=== PATIENT | male | born 1945 | race Caucasian/White ===

== ENCOUNTER 2017-11-07 13:36 | Outpatient (CLI) | payer MEDICARE, OTHER ==
[~2017-11-07] VITALS: Ht 167.6 cm; Wt 51.3 kg
[~2017-11-07 13:36] MED LIST: ALBU18HF2 INH; ALOE VERA JUICE PO; ATR0.5NEB NEB; FERROFOOD; FLAX100031 PO; FLO44IN INH; FLORA SINUS; GASTREX; JOINT ADVANTAGE GOLD PO; LACT30003 PO; METHYL FOLATE; MONT10TA24 PO; NAC; OKRA PEPSIN; PROBIOTIC ADVANTAGE PO; PROSTATE SUPPORT PO; VISION ADVANTAGE PO; VITAMIN B-12 SL; VITAMIN D-3; VITAMIN K2; [UNRECOGNIZED DRUG - OTHER]; [UNRECOGNIZED DRUG - OTHER]; [UNRECOGNIZED DRUG - OTHER]; [UNRECOGNIZED DRUG - OTHER]
[2017-11-07 15:07] LABS: BASOPHILS % (AUTO) 0.5 % (0-1); EOSINOPHILS # (AUTO) 0.3 X10'3 (0-0.9); EOSINOPHILS % (AUTO) 4.8 % (0-6); LYMPHOCYTES % (AUTO) 15.4 % (21-51); MEAN CORPUSCULAR HGB CONC 34.3 % (33.0-36.5); MEAN CORPUSCULAR VOLUME 84.4 FL (78-98); MEAN PLATELET VOLUME 7.1 FL (7.4-10.4); MONOCYTES # (AUTO) 0.5 X10'3 (0-0.9); MONOCYTES % (AUTO) 8.2 % (2-12); NEUTROPHILS # (AUTO) 4.6 X10'3 (1.8-7.7); NEUTROPHILS % (AUTO) 71.1 % (42-75); PRE OP HEMATOCRIT 29.8 % (42.0-52.0); PRE OP PLATELET COUNT 259 X10'3 (140-440); RED BLOOD COUNT 3.53 X10'6 (4.70-6.10); RED CELL DISTRIBUTION WIDTH 16.7 % (11.5-14.5)
[2017-11-07 15:15] LABS: PRE OP HEMOGLOBIN 10.2 g/dL (14.0-17.9)
[2017-11-07 15:19] LABS: PRE OP PROTIME 10.1 SECONDS (9.0-12.0)
[2017-11-07 15:24] LABS: ALBUMIN 3.4 G/DL (3.4-5.0); ALBUMIN/GLOBULIN RATIO 0.8 (1.1-1.5); ALKALINE PHOSPHATASE 70 IU/L (46-116); BLOOD UREA NITROGEN 28 MG/DL (7-18); BUN/CREATININE RATIO 21.2 (5.4-32.0); CALCIUM 9.5 MG/DL (8.5-10.1); CHLORIDE 108 MMOL/L (99-107); CREATININE 1.32 MG/DL (0.60-1.10); PRE OP ALT 42 U/L (30-65); PRE OP ANION GAP 13 (8-16); PRE OP AST 37 U/L (10-37); PRE OP BILIRUB, TOTAL 0.3 MG/DL (0.0-1.0); PRE OP GLUCOSE 100 MG/DL (70-104); PRE OP SODIUM 143 MMOL/L (135-145); TOTAL CARBON DIOXIDE 21.9 MMOL/L (24-32); TOTAL PROTEIN 7.6 G/DL (6.4-8.2); eGFR 53 ML/MIN
== END 2017-11-07 23:59 | disposition home or self-care (01) ==
LOC: PRE-OP 13:36 → EDSTATUS 11-13 10:30
PROVIDERS: ATTEND Orthopaedic Surgery
DX: M17.11 Unilateral primary osteoarthritis, right knee (principal); Z53.09 Procedure and treatment not carried out because of other contraindication; J44.9 Chronic obstructive pulmonary disease, unspecified; Z86.718 Personal history of other venous thrombosis and embolism; Z85.038 Personal history of other malignant neoplasm of large intestine; Z90.49 Acquired absence of other specified parts of digestive tract
CPT/HCPCS: 36415; 80053; 85025; 85610; 85730; 87070

== ENCOUNTER 2017-11-29 13:10 | Inpatient (IN) | payer MEDICARE, OTHER ==
[~2017-11-29] VITALS: Ht 165.1 cm; Wt 99.0 kg
[~2017-11-29 13:10] MED LIST changes: -ALBU18HF2 INH; -ATR0.5NEB NEB; -FERROFOOD; +FERROFOOD PO; -FLO44IN INH; -FLORA SINUS; +FLORA SINUS PO; -GASTREX; +GASTREX PO; -METHYL FOLATE; +METHYL FOLATE PO; -MONT10TA24 PO; -NAC; -OKRA PEPSIN; +OKRA PEPSIN PO; -VITAMIN B-12 SL; -VITAMIN D-3; -VITAMIN K2; -[UNRECOGNIZED DRUG - OTHER]; -[UNRECOGNIZED DRUG - OTHER]; -[UNRECOGNIZED DRUG - OTHER]; -[UNRECOGNIZED DRUG - OTHER]; +[UNRECOGNIZED DRUG - OTHER] PO; +[UNRECOGNIZED DRUG - OTHER] PO; +[UNRECOGNIZED DRUG - OTHER] PO; +[UNRECOGNIZED DRUG - OTHER] TOP
[2017-11-29 14:48] LABS: BASOPHILS % (AUTO) 0.5 % (0-1); EOSINOPHILS # (AUTO) 0.2 X10'3 (0-0.9); EOSINOPHILS % (AUTO) 4.7 % (0-6); MEAN CORPUSCULAR HEMOGLOBIN 29.1 PG (27.0-31.0); MEAN CORPUSCULAR HGB CONC 33.9 % (33.0-36.5); MEAN CORPUSCULAR VOLUME 85.8 FL (78-98); MEAN PLATELET VOLUME 7.3 FL (7.4-10.4); MONOCYTES # (AUTO) 0.5 X10'3 (0-0.9); MONOCYTES % (AUTO) 9.7 % (2-12); NEUTROPHILS # (AUTO) 3.2 X10'3 (1.8-7.7); NEUTROPHILS % (AUTO) 65.1 % (42-75); PRE OP HEMATOCRIT 28.6 % (42.0-52.0); PRE OP PLATELET COUNT 248 X10'3 (140-440); RED BLOOD COUNT 3.33 X10'6 (4.70-6.10); RED CELL DISTRIBUTION WIDTH 15.8 % (11.5-14.5)
[2017-11-29 14:52] LABS: PRE OP HEMOGLOBIN 9.7 g/dL (14.0-17.9)
[2017-11-29 14:59] LABS: PRE OP PROTIME 10.4 SECONDS (9.0-12.0)
[2017-11-29 15:04] LABS: ALBUMIN 3.4 G/DL (3.4-5.0); ALBUMIN/GLOBULIN RATIO 0.9 (1.1-1.5); ALKALINE PHOSPHATASE 69 IU/L (46-116); BLOOD UREA NITROGEN 28 MG/DL (7-18); BUN/CREATININE RATIO 19.7 (5.4-32.0); CALCIUM 9.3 MG/DL (8.5-10.1); CHLORIDE 104 MMOL/L (99-107); CREATININE 1.42 MG/DL (0.60-1.10); PRE OP ALT 44 U/L (30-65); PRE OP ANION GAP 8 (8-16); PRE OP AST 41 U/L (10-37); PRE OP BILIRUB, TOTAL 0.3 MG/DL (0.0-1.0); PRE OP GLUCOSE 95 MG/DL (70-104); PRE OP POTASSIUM 4.8 MMOL/L (3.4-5.1); PRE OP SODIUM 137 MMOL/L (135-145); TOTAL CARBON DIOXIDE 25.4 MMOL/L (24-32); TOTAL PROTEIN 7.3 G/DL (6.4-8.2); eGFR 49 ML/MIN
[2017-12-03] MEDS ORDERED: CYA500T PO (11:39)
[2017-12-03] MEDS ORDERED: CHOL10002 PO (11:39)
[2017-12-03] MEDS ORDERED: ACET600C5 PO (11:39)
[2017-12-03] MEDS ORDERED: VITA40TA PO (11:39)
[2017-12-04] VITALS (17 sets, daily range): BP systolic 106–144; BP diastolic 52–83
[2017-12-04] MEDS ORDERED: ringers solution, lacted 1,000 ML IV SCH ×2 (05:00→17:24)
[2017-12-04] MEDS ORDERED: tranexamic acid inj. 1,000 MG in normal saline 100ml IV soln 90 ML IV ONE (05:30)
[2017-12-04] MEDS ORDERED: VANCOMYCIN INJ 1000 MG in NORMAL SALINE 250ml IV.SOLN IV ONE (05:30)
[2017-12-04] MEDS ORDERED: albuterol 2.5 MG/3 ML nebule NEB ONE (05:30)
[2017-12-04] MEDS ORDERED: gabapentin 300mg capsule PO ONE (05:30)
[2017-12-04] MEDS ORDERED: metoclopramide 5 mg/ml inj IV ONE (05:30)
[2017-12-04] MEDS ORDERED: acetaminophen 325mg tablet PO ONE (05:30)
[2017-12-04] MEDS ORDERED: Cefazolin 2GM/100ML NS IVPB IV ONE (05:30)
[2017-12-04] MEDS ORDERED: oxyCODONE SR 10mg (sust. release) tab PO ONE (05:30)
[2017-12-04] MEDS ORDERED: famotidine 20mg tablet PO ONE (05:30)
[2017-12-04] MEDS ORDERED: ketorolac trometh. 30mg/ml inj. ONE (11:10)
[2017-12-04] MEDS ORDERED: morphine 10mg/ml inj. ONE (11:11)
[2017-12-04] MEDS ORDERED: ceFAZolin 1000mg inj ONE (11:11)
[2017-12-04] MEDS ORDERED: ROPIVAcaine 0.5% (5mg/ml) 30ml vial ONE (11:11)
[2017-12-04] MEDS ORDERED: vancomycin 1,000mg inj ONE (11:11)
[2017-12-04] MEDS ORDERED: ePHEDrine 50MG/ML INJ. ONE (13:40)
[2017-12-04] MEDS ORDERED: sevoflurane 250ml liquid IH ONE (13:40)
[2017-12-04] MEDS ORDERED: fentaNYL /PF 50mcg/ml 5ml ampule ONE (13:45)
[2017-12-04] MEDS ORDERED: Thrombin (Bovine) 5,000 unit vial TP ONE (13:50)
[2017-12-04] MEDS ORDERED: LIDOcaine 2% (20mg/ml) 5ml vial ONE (14:54)
[2017-12-04] MEDS ORDERED: glycopyrrolate 0.2mg/ml inj ONE (14:54)
[2017-12-04] MEDS ORDERED: propofol inj 20 ML IV ONE (14:54)
[2017-12-04 14:55] LABS: ISTAT CREATININE 1.2 mg/dL (0.8-1.3); ISTAT HGB 8.2 g/dl (14.0-18.0); ISTAT IONIZED CALCIUM 1.33 mmol/L (1.03-1.32); ISTAT K 4.1 mmol/L (3.5-5.1); POC BUN/CREATININE RATIO 22.5 (5.4-32.0)
[2017-12-04] MEDS ORDERED: HYDROmorphone inj. 0.5 MG/0.5 ML DISP.SYRIN IV PRN ×2 (16:20)
[2017-12-04] MEDS ORDERED: magnesium hydroxide 30ml (MOM) UD suspension PO PRN (16:20)
[2017-12-04] MEDS ORDERED: bisacodyl 10mg suppository rectal RC PRN (16:20)
[2017-12-04] MEDS ORDERED: diphenhydrAMINE 25mg capsule PO PRN ×2 (16:20)
[2017-12-04] MEDS ORDERED: ondansetron/PF 4mg/2ml inj IV PRN ×2 (16:20→17:25)
[2017-12-04] MEDS ORDERED: acetaminophen 325mg tablet PO PRN (16:20)
[2017-12-04] MEDS ORDERED: meperidine/PF 25mg/ml syringe IV PRN ×3 (17:25)
[2017-12-04] MEDS ORDERED: morphine 4 MG/ML inj SYRINge IV PRN ×2 (17:25)
[2017-12-04] MEDS ORDERED: proCHLORperazine 10 MG/2 ml inj IV PRN (17:25)
[2017-12-04] MEDS: potassium cl 20mEq in 1/2 NS 1,000 ML IV SCH (19:15)
[2017-12-04] MEDS ORDERED: vancomycin/NS 1 GM ADD-VANTAGE 250 ML IV SCH (20:00)
[2017-12-04] MEDS: gabapentin 300mg capsule PO SCH (20:50)
[2017-12-04] MEDS: acetaminophen 325mg tablet PO SCH (20:50)
[2017-12-04] MEDS: sennosides 8.6mg tablet PO SCH (20:53)
[2017-12-04] MEDS: oxyCODONE IR 5mg (immed. release) tablet PO PRN (22:58)
[2017-12-05] VITALS (8 sets, daily range): BP systolic 91–108; BP diastolic 38–58
[2017-12-05] MEDS: ceFAZolin 1GM/D5W- ADD-VANTAGE 50 ML IV SCH ×2 (00:11→09:23)
[2017-12-05] MEDS: potassium cl 20mEq in 1/2 NS 1,000 ML IV SCH ×4 (00:17→22:14)
[2017-12-05] MEDS: acetaminophen 325mg tablet PO SCH ×4 (02:00→19:52)
[2017-12-05] MEDS: oxyCODONE IR 5mg (immed. release) tablet PO PRN ×3 (05:35→22:29)
[2017-12-05 06:31] LABS: ANION GAP 13 (8-16); CHLORIDE 110 MMOL/L (99-107); POTASSIUM 4.7 MMOL/L (3.5-5.1); SODIUM 143 MMOL/L (135-145); TOTAL CARBON DIOXIDE 19.8 MMOL/L (24-32)
[2017-12-05] MEDS ORDERED: ACETYLCYSTEINE PO SCH (08:00)
[2017-12-05] MEDS ORDERED: ALOE VERA JUICE PO SCH (08:00)
[2017-12-05 08:24] LABS: BASOPHILS % (AUTO) 0.1 % (0-1); EOSINOPHILS % (AUTO) 0 % (0-6); HEMATOCRIT 33.4 % (42.0-52.0); HEMOGLOBIN 11.4 g/dl (14.0-17.9); LYMPHOCYTES # (AUTO) 0.5 X10'3 (1.1-4.8); LYMPHOCYTES % (AUTO) 6.6 % (21-51); MEAN CORPUSCULAR HEMOGLOBIN 28.8 PG (27.0-31.0); MEAN CORPUSCULAR VOLUME 84.7 FL (78-98); MEAN PLATELET VOLUME 7.5 FL (7.4-10.4); MONOCYTES # (AUTO) 0.5 X10'3 (0-0.9); MONOCYTES % (AUTO) 7.9 % (2-12); NEUTROPHILS # (AUTO) 5.8 X10'3 (1.8-7.7); NEUTROPHILS % (AUTO) 85.4 % (42-75); PLATELET COUNT 186 X10'3 (140-440); RED BLOOD COUNT 3.94 X10'6 (4.70-6.10); RED CELL DISTRIBUTION WIDTH 15.5 % (11.5-14.5); WHITE BLOOD COUNT 6.8 X10'3 (4.5-11.0)
[2017-12-05] MEDS ORDERED: ceFAZolin 1GM/D5W- ADD-VANTAGE 50 ML IV SCH (09:00)
[2017-12-05] MEDS: cyanocobalamin 500mcg tablet PO SCH (09:22)
[2017-12-05] MEDS: enoxaparin 40mg/0.4ml syringe SQ SCH (09:25)
[2017-12-05] MEDS: gabapentin 300mg capsule PO SCH ×3 (09:28→19:51)
[2017-12-05] MEDS: sennosides 8.6mg tablet PO SCH (19:51)
[2017-12-05] MEDS: celeCOXIB 100mg capsule PO SCH (19:51)
[2017-12-06] MEDS: acetaminophen 325mg tablet PO SCH ×3 (02:25→15:33)
[2017-12-06 06:00] VITALS: BP 108/52
[2017-12-06 06:13] LABS: BASOPHILS % (AUTO) 0.4 % (0-1); EOSINOPHILS # (AUTO) 0.2 X10'3 (0-0.9); HEMATOCRIT 29.2 % (42.0-52.0); HEMOGLOBIN 9.9 g/dl (14.0-17.9); LYMPHOCYTES # (AUTO) 0.7 X10'3 (1.1-4.8); LYMPHOCYTES % (AUTO) 11.9 % (21-51); MEAN CORPUSCULAR HGB CONC 33.9 % (33.0-36.5); MEAN CORPUSCULAR VOLUME 85.7 FL (78-98); MEAN PLATELET VOLUME 7.7 FL (7.4-10.4); MONOCYTES # (AUTO) 0.7 X10'3 (0-0.9); MONOCYTES % (AUTO) 10.9 % (2-12); NEUTROPHILS # (AUTO) 4.4 X10'3 (1.8-7.7); NEUTROPHILS % (AUTO) 73.8 % (42-75); PLATELET COUNT 161 X10'3 (140-440); RED BLOOD COUNT 3.41 X10'6 (4.70-6.10); RED CELL DISTRIBUTION WIDTH 15.5 % (11.5-14.5)
[2017-12-06] MEDS: oxyCODONE IR 5mg (immed. release) tablet PO PRN ×4 (07:17→21:50)
[2017-12-06] MEDS ORDERED: gabapentin 100mg capsule PO SCH (08:57)
[2017-12-06] MEDS: celeCOXIB 100mg capsule PO SCH ×2 (09:00→20:09)
[2017-12-06] MEDS: cyanocobalamin 500mcg tablet PO SCH (09:01)
[2017-12-06] MEDS: enoxaparin 40mg/0.4ml syringe SQ SCH (09:02)
[2017-12-06] MEDS ORDERED: gabapentin 300mg capsule PO ONE (09:45)
[2017-12-06 10:05] VITALS: BP 124/60
[2017-12-06] MEDS ORDERED: gabapentin 100mg capsule PO ONE (10:20)
[2017-12-06] MEDS: gabapentin 300mg capsule PO SCH ×2 (13:00→20:09)
[2017-12-06] MEDS ORDERED: acetaminophen 325mg tablet PO PRN (16:20)
[2017-12-06 18:00] VITALS: BP 118/62
[2017-12-06] MEDS: sennosides 8.6mg tablet PO SCH (20:09)
[2017-12-06 22:00] VITALS: BP 112/52
[2017-12-07] MEDS: oxyCODONE IR 5mg (immed. release) tablet PO PRN (05:36)
[2017-12-07 05:37] LABS: BASOPHILS % (AUTO) 0.2 % (0-1); EOSINOPHILS # (AUTO) 0.1 X10'3 (0-0.9); EOSINOPHILS % (AUTO) 2.4 % (0-6); HEMATOCRIT 28.3 % (42.0-52.0); HEMOGLOBIN 9.4 g/dl (14.0-17.9); LYMPHOCYTES # (AUTO) 0.5 X10'3 (1.1-4.8); LYMPHOCYTES % (AUTO) 8.3 % (21-51); MEAN CORPUSCULAR HEMOGLOBIN 28.8 PG (27.0-31.0); MEAN CORPUSCULAR HGB CONC 33.4 % (33.0-36.5); MEAN CORPUSCULAR VOLUME 86.2 FL (78-98); MEAN PLATELET VOLUME 7.6 FL (7.4-10.4); MONOCYTES # (AUTO) 0.6 X10'3 (0-0.9); MONOCYTES % (AUTO) 10.9 % (2-12); NEUTROPHILS # (AUTO) 4.2 X10'3 (1.8-7.7); NEUTROPHILS % (AUTO) 78.2 % (42-75); PLATELET COUNT 161 X10'3 (140-440); RED BLOOD COUNT 3.28 X10'6 (4.70-6.10); RED CELL DISTRIBUTION WIDTH 15.4 % (11.5-14.5); WHITE BLOOD COUNT 5.4 X10'3 (4.5-11.0)
[2017-12-07 06:00] VITALS: BP 88/45
[2017-12-07 08:20] VITALS: BP 95/42
[2017-12-07] MEDS: gabapentin 300mg capsule PO SCH (08:27)
[2017-12-07] MEDS: celeCOXIB 100mg capsule PO SCH (08:27)
[2017-12-07] MEDS: cyanocobalamin 500mcg tablet PO SCH (08:27)
[2017-12-07] MEDS: enoxaparin 40mg/0.4ml syringe SQ SCH (08:27)
[2017-12-07 10:00] VITALS: BP 92/36
[2017-12-10] MEDS ORDERED: TRAM50TA2 (06:10)
[2017-12-10] MEDS ORDERED: ENOX30DI4 (06:10)
== END 2017-12-07 14:00 | disposition home health service (06) | DRG 470 ==
LOC: EDSTATUS 13:10 → PAS IN 12-04 08:50 → EDSTATUS 12-04 10:45 → ORTHO 4S 12-04 18:30
PROVIDERS: ADMIT Orthopaedic Surgery; ATTEND Orthopaedic Surgery
PROC: 0SRC0J9 Replacement of Right Knee Joint with Synthetic Substitute, Cemented, Open Approach (ICD-10-PCS; 2017-12-04)
PROC: 8E0Y0CZ Robotic Assisted Procedure of Lower Extremity, Open Approach (ICD-10-PCS; 2017-12-04)
PROC: 30233N1 Transfusion of Nonautologous Red Blood Cells into Peripheral Vein, Percutaneous Approach (ICD-10-PCS; principal; 2017-12-04 13:40)
DX: M17.11 Unilateral primary osteoarthritis, right knee (principal); D64.9 Anemia, unspecified; K21.9 Gastro-esophageal reflux disease without esophagitis; Z88.8 Allergy status to other drugs, medicaments and biological substances; Z85.038 Personal history of other malignant neoplasm of large intestine
CPT/HCPCS: 36415; 80047; 80051; 80053; 85025; 85610; 85730; 86885; 86900; 86901; 86920; 87070; 97110; 97116; 97161; 97530; A6455; A7000; C1713; C1758; C1776; C9250; J0690; J1650; J1885; J2001; J2175; J2270; J2704; J2765; J2795; J3010; J3370; J3490; J7030; J7120; P9016